=== PATIENT | female | born 1970 | race Caucasian/White ===

== ENCOUNTER → 2021-03-24 12:25 | Outpatient (BNVA) | payer BC, SELFPAY | PROVIDERS: Visit Provider Specialist | DX: G35 Multiple sclerosis (principal); Z87.891 Personal history of nicotine dependence | CPT/HCPCS: 99205 ==

== ENCOUNTER 2022-02-08 07:51 | Outpatient (CLI) | payer BC, SELFPAY ==
--- NOTE | 2022-02-08 08:00 | MR_ITS ---
WS: [id number] MRI HEAD WITH CONTRAST TECHNIQUE: Sagittal T1, T2 axial, T2 axial FLAIR, axial susceptibility weighted imaging, axial diffus ion weighted images, and coronal T2 images were obtained. Pre and post-T1 axial and post T1 coronal i mages. ADC and FSPGR images. CLINICAL INFORMATION: G35 - Multiple sclerosis COMPARISON: None. FINDINGS: No evidence of restricted diffusion to suggest acute ischemia. Ventricular system and basal cisterns are patent. Moderate patchy supratentorial white matter changes with mild parenchymal volume loss com patible with history of demyelinating disease. Mild T1 hypointense lesion load. No enhancing lesions to indicate active disease. No significant atrophy of the corpus callosum. No hemosiderin on susceptibly weighted images. No abnormal gadolinium enhancement. Normal dural venou s sinuses. MR/MR head wo/w con [id number] IMPRESSION: 1. No evidence of restricted diffusion to suggest acute ischemia. 2. Moderate patchy supratentorial white matter changes compatible with history of demyelinating disease. 3. Mild T1 hypointense lesion load. 4. No enhancing lesions to indicate active disease. 5. Minimal parenchymal volume loss. 6. No significant thinning of the corpus callosum. 7. No other remarkable findings.
--- NOTE | 2022-02-08 08:45 | MR_ITS ---
WS: [id number] MRI CERVICAL SPINE NONCONTRAST AND CONTRAST TECHNIQUE: Sagittal T1, T2 and STIR imaging. Axial T2, gradient, and fiesta imaging. Post gadolinium imaging was obtained. CLINICAL INFORMATION: G35 - Multiple sclerosis COMPARISON: None. FINDINGS: Straightening of the normal cervical lordosis. Numerous patchy demyelinating lesions within the cervi bob cord extending into the upper thoracic cord. No abnormal gadolinium enhancement to indicate activ e disease. No significant atrophy of the cervical cord. C2-C3: Normal. C3-C4: Slight anterolisthesis C3 on C4. Severe RIGHT bony foraminal narrowing. Advanced RIGHT facet arthropathy. Moderate LEFT bony foraminal narrowing. C4-C5: Slight anterolisthesis C4 on C5. Advanced LEFT facet arthropathy. Moderate LEFT and mild RIGHT bony foraminal narrowing. C5-C6: Disc osteophyte complex with endplate ridging. Severe LEFT bony foraminal narrowing. Mild face t arthropathy. RIGHT foramen is patent. C6-C7: Disc osteophyte complex with endplate ridging. Advanced LEFT facet arthropathy. Severe LEFT [place] foraminal narrowing. Mild RIGHT foraminal narrowing. C7-T1: Spinal canal and foramen are patent. Mild facet arthropathy. Visualized brain stem structures: Normal. Prevertebral soft tissues: Normal. MR/MR cervical spine wo/w [id number] IMPRESSION: 1. Numerous eccentric patchy demyelinating lesions within the cervical cord an d upper thoracic cord compatible with demyelinating disease. 2. No enhancing lesions to indicate active disease. 3. No significant cord atrophy. 4. Disc osteophyte complexes at C3-C4 C4-C5 C5-C6 and C6-C7 5. Moderate to severe LEFT C5-C6 and LEFT C6-C7 bony foraminal narrowing 6. Advanced facet arthropathy RIGHT C3-C4 and LEFT C4-C5. Moderate to severe R IGHT C3-C4 bony foraminal narrowing. Moderate LEFT C4-C5 bony foraminal narrowi ng.
[2022-02-08] MEDS: gadobenate dimeglumine 20 mL vial IV (09:19)
== END 2022-02-08 07:52 | disposition home or self-care (01) ==
PROVIDERS: PCP Internal Medicine; Visit Provider Specialist
DX: G35 Multiple sclerosis (principal); M47.892 Other spondylosis, cervical region; M25.78 Osteophyte, vertebrae
CPT/HCPCS: 70553; 72156

== ENCOUNTER 2023-01-02 10:54 | Oncology outpatient (recurring) (ONCR) | payer BC, SELFPAY ==
[2023-01-02] VITALS (8 sets, daily range): BP systolic 114–145; BP diastolic 71–97; PULSE 84–105; RESP 18; TEMP 36.2–36.6; O2SAT 97–99
[2023-01-02] MEDS: acetaminophen 500 mg Tablet 1000 MG PO (11:52)
[2023-01-02] MEDS: methylPREDNISolone sod succ 125 mg SDV IVP (11:53)
[2023-01-02] MEDS: diphenhydrAMINE 50 mg/mL SDV 1mL 25 MG IVP ×2 (11:53→14:06)
[2023-01-02] MEDS: sodium chloride 0.9% 250 ML 75 ML IV (11:53)
[2023-01-02] MEDS: ocrelizumab 300 MG in sodium chloride 0.9% 250 ML 30 MG IV (12:06)
== END 2023-01-02 23:59 | disposition home or self-care (01) ==
PROVIDERS: PCP Internal Medicine; Visit Provider Specialist
DX: G35 Multiple sclerosis (principal)
CPT/HCPCS: 96375; 96413; 96415; J1200; J2350; J2930; J7050

== ENCOUNTER 2023-01-16 10:46 | Oncology outpatient (recurring) (ONCR) | payer BC, SELFPAY ==
[2023-01-16] VITALS (9 sets, daily range): BP systolic 107–138; BP diastolic 70–89; PULSE 74–96; RESP 16–17; TEMP 36.6–36.7; O2SAT 96–99
[2023-01-16] MEDS: acetaminophen 500 mg Tablet 1000 MG PO (11:10)
[2023-01-16] MEDS: sodium chloride 0.9% 250 ML 75 ML IV (11:11)
[2023-01-16] MEDS: diphenhydrAMINE 50 mg/mL SDV 1mL 25 MG IVP ×2 (11:12→14:44)
[2023-01-16] MEDS: methylPREDNISolone sod succ 125 mg SDV IVP (11:13)
[2023-01-16] MEDS: ocrelizumab 300 MG in sodium chloride 0.9% 250 ML 30 MG IV (11:45)
== END 2023-01-16 23:59 | disposition home or self-care (01) ==
PROVIDERS: PCP Internal Medicine; Visit Provider Specialist
DX: G35 Multiple sclerosis (principal)
CPT/HCPCS: 96375; 96376; 96413; 96415; J1200; J2350; J2930; J7050

== ENCOUNTER 2023-07-20 08:46 | Oncology outpatient (recurring) (ONCR) | payer OTHER, SELFPAY ==
[2023-07-20] MEDS: acetaminophen 500 mg Tablet 1000 MG PO (09:49)
[2023-07-20] MEDS: diphenhydrAMINE 50 mg/mL SDV 1mL 25 MG IVP (09:50)
[2023-07-20] MEDS: sodium chloride 0.9% 250 ML 75 ML IV (09:50)
[2023-07-20] MEDS: methylPREDNISolone sod succ 125 mg/2 mL INJ IVP (09:56)
[2023-07-20 10:30] VITALS: BP 119/80; PULSE 80; RESP 16; TEMP 36.3; O2SAT 95
[2023-07-20] MEDS: ocrelizumab 600 MG in sodium chloride 0.9% 500 ML 40 MG IV (10:30)
[2023-07-20 11:00] VITALS: BP 109/71; PULSE 71; RESP 16; TEMP 36.4; O2SAT 96
[2023-07-20 11:30] VITALS: BP 119/75; PULSE 75; RESP 16; TEMP 36.6; O2SAT 95
[2023-07-20 12:00] VITALS: BP 120/78; PULSE 73; RESP 16; TEMP 36.6; O2SAT 94
[2023-07-20 12:30] VITALS: BP 145/85; PULSE 82; RESP 16; TEMP 36.6; O2SAT 95
[2023-07-20 14:45] VITALS: BP 148/88; PULSE 92; RESP 16; TEMP 36.6; O2SAT 96
== END 2023-07-20 23:59 | disposition home or self-care (01) ==
PROVIDERS: PCP Internal Medicine; Visit Provider Specialist
DX: G35 Multiple sclerosis (principal)
CPT/HCPCS: 96375; 96413; 96415; A4222; J1200; J2350; J2930; J7040; J7050

== ENCOUNTER 2024-02-01 09:02 | Oncology outpatient (recurring) (ONCR) | payer OTHER, SELFPAY ==
[2024-02-01] VITALS (7 sets, daily range): BP systolic 111–143; BP diastolic 74–93; PULSE 58–95; RESP 16–18; TEMP 36.5–36.7; O2SAT 94–99
[2024-02-01] MEDS: acetaminophen 500 mg Tablet 1000 MG PO (09:33)
[2024-02-01] MEDS: sodium chloride 0.9% 250 ML 75 ML IV (09:38)
[2024-02-01] MEDS: diphenhydrAMINE 50 mg/mL SDV 1mL 25 MG IVP (09:38)
[2024-02-01] MEDS: methylPREDNISolone sod succ 125 mg/2 mL INJ IVP (09:41)
[2024-02-01] MEDS: ocrelizumab 600 MG in sodium chloride 0.9% 500 ML 40 MG IV (10:48)
== END 2024-02-10 23:55 | disposition home or self-care (01) ==
PROVIDERS: PCP Internal Medicine; Visit Provider Specialist
DX: G35 Multiple sclerosis (principal); Z79.899 Other long term (current) drug therapy
CPT/HCPCS: 96375; 96413; 96415; A4222; J1200; J2350; J2919; J7040; J7050

== ENCOUNTER 2024-08-05 08:07 | Oncology outpatient (recurring) (ONCR) | payer OTHER, SELFPAY ==
[2024-08-05 09:10] VITALS: BP 121/83; PULSE 74; RESP 18; TEMP 36.8; O2SAT 98
[2024-08-05] MEDS: diphenhydrAMINE 50 mg/mL SDV 1mL 25 MG IVP ×2 (09:46→11:36)
[2024-08-05] MEDS: acetaminophen 500 mg Tablet 1000 MG PO (09:47)
[2024-08-05] MEDS: methylPREDNISolone sod succ 125 mg/2 mL INJ IVP (09:47)
[2024-08-05] MEDS: sodium chloride 0.9% 250 ML 75 ML IV (09:55)
[2024-08-05] MEDS: ocrelizumab 600 MG in sodium chloride 0.9% 500 ML 100 MG IV (10:33)
[2024-08-05 11:25] VITALS: BP 133/89; PULSE 80; RESP 16; O2SAT 95
[2024-08-05 11:50] VITALS: BP 115/77; PULSE 80; RESP 17; TEMP 36.6; O2SAT 96
[2024-08-05 12:20] VITALS: BP 125/89; PULSE 72; RESP 18; TEMP 36.8; O2SAT 94
[2024-08-05 12:55] VITALS: BP 120/85; PULSE 76; RESP 16; O2SAT 96
[2024-08-05 14:56] VITALS: BP 152/83; PULSE 94; RESP 18; TEMP 36.9; O2SAT 95
== END 2024-08-09 23:59 | disposition home or self-care (01) ==
PROVIDERS: PCP Internal Medicine; Visit Provider Specialist
DX: G35 Multiple sclerosis (principal); Z79.899 Other long term (current) drug therapy
CPT/HCPCS: 96413; 96415; A4222; J1200; J2350; J2919; J7040; J7050